=== PATIENT | female | born 1935 | race Caucasian/White ===

== ENCOUNTER 2019-06-23 01:23 | Inpatient (IN) ==
[2019-06-23 03:32] VITALS: BP 108/93
[2019-06-23] MEDS ORDERED: Naloxone 0.4 MG/ML INJ IVP PRN (03:41)
[2019-06-23] MEDS ORDERED: *HR* Atropine Sulfate 1 MG/10 ML SYRINGE ONE (03:57)
[2019-06-23] MEDS ORDERED: Morphine Sulfate 2 MG/ML SYRINGE IVP ONE (04:13)
[2019-06-23 04:37] LABS: Basophils % 0.2 %; Eosinophils % 0.1 %; Hemoglobin 11.7 g/dL (11.5-15.4); Immature Granulocytes % 0.2 % (0-4); Lymphocytes # 1.5 K/mcL (0.6-4.6); Mean Corpuscular Hemoglobin 27.9 pg (28.0-33.3); Mean Corpuscular Volume 93.1 fL (83.0-100.0); Mean Platelet Volume 10.3 fL (9.4-12.4); Monocytes # 0.3 K/mcL (0.0-1.3); Monocytes % 2.7 %; Platelet Count 282 K/mcL (140-400); Red Blood Count 4.19 M/mcL (3.82-4.97); Red Cell Distribution Width 14.7 % (11.5-14.5); Segmented Neutrophils % 80.8 %; White Blood Count 9.2 K/mcL (4.3-11.1)
[2019-06-23 04:46] LABS: Neutrophils # 7.4 K/mcL (1.6-8.9)
[2019-06-23 04:55] LABS: Albumin 2.8 g/dL (3.5-5.7); Albumin/Globulin Ratio 1.6 (1.1-2.2); Bilirubin,Total 0.8 mg/dL (0.3-1.0); Calcium 7.7 mg/dL (8.6-10.3); Globulin 1.7 g/dL (2.4-3.5); Magnesium 3.1 mg/dL (1.6-2.6); Phosphorous 6.8 mg/dL (2.7-4.5); Potassium 4.2 mEq/L (3.5-5.1); Total Protein 4.5 g/dL (6.4-8.9)
[2019-06-23 05:02] LABS: Burr Cells 1+ (Not Present); Platelet Estimate Normal (Normal)
[2019-06-23 05:31] LABS: Troponin I 0.18 ng/mL (< 0.04)
== END 2019-06-23 05:28 | disposition expired | DRG 871 ==
LOC: ICNU 02:50
PROVIDERS: ADMIT Student in an Organized Health Care Education/Training Program; ATTEND Student in an Organized Health Care Education/Training Program